=== PATIENT | male | born 1995 | race Caucasian/White ===

== ENCOUNTER 2017-04-17 17:11 | Emergency (ER) | payer OTHER | END 2017-04-17 19:05 | disposition home or self-care (01) | LOC: FER 17:11 | DX: S51.011A Laceration without foreign body of right elbow, initial encounter (principal); S93.401A Sprain of unspecified ligament of right ankle, initial encounter; V49.40XA Driver injured in collision with unspecified motor vehicles in traffic accident, initial encounter; Y92.009 Unspecified place in unspecified non-institutional (private) residence as the place of occurrence of the external cause | CPT/HCPCS: 73080; 73610 ==